=== PATIENT | male | born 1970 | race Two or more races ===

== ENCOUNTER 2020-12-23 10:00 | Emergency (ER) | payer OTHER ==
[~2020-12-23] VITALS: Ht 180.3 cm; Wt 115.7 kg
[2020-12-23] MEDS ORDERED: COLCHICINE0.6 M1 PO (16:02)
[2020-12-23] MEDS ORDERED: INDOMETHACIN50 MG PO (16:02)
== END 2020-12-23 16:21 ==
LOC: ER 10:00
DX: M25.572 Pain in left ankle and joints of left foot (principal)